=== PATIENT | female | born 1995 | race American Indian/Alaskan Native ===

== ENCOUNTER 2016-12-21 20:01 | Emergency (ER) | payer OTHER ==
--- NOTE | 2016-12-21 22:09 | Cat Scan Report ---
FINAL REPORT EXAM: CT HEAD/BRAIN WO CON HISTORY: HEAD INJURY / HEADACHE TECHNIQUE: Noncontrast serial axial images from skull base to vertex PRIORS: None. FINDINGS: There is no mass effect or midline shift. There are no abnormal intra or extra-axial fluid collections. Cortical sulci and lateral ventricles are within normal limits for size and configuration. Basilar cisterns are patent. No acute intracranial hemorrhage is identified. Visualized paranasal sinuses and mastoid air cells are well aerated. No acute osseous abnormality is identified. IMPRESSION: 1. No acute intracranial hemorrhage is identified.
[2016-12-21 22:50] VITALS: BP 107/78
[2016-12-21] MEDS ORDERED: TORADOL IM ONE (23:00)
--- NOTE | 2016-12-21 23:06 | Emergency Department Report ---
ED Head Trauma HPI - General Chief complaint: Head Injury Stated complaint: HEAD INJURY Time Seen by Provider: 12/21/16 22:44 Source: patient Mode of arrival: Ambulatory Limitations: No Limitations - History of Present Illness Initial comments: This is a 21-year-old female nontoxic, well nourished in appearance, no acute signs of distress the present the ED complaining of intermittent headaches 4 days. Patient stated 4 days ago she hit her head against a metal pipe and developed headache with dizziness. Patient denies loss of consciousness, stated she had one episode of emesis with full content. They stated headache has been relieved with ibuprofen [id number] but today she presents with headache concerned because the headache is intermittently coming and going for 4 days. Patient denies any stiff neck, nausea, vomiting, chest pain, shortness of breath, fever, chills, blurry vision, or visual changes. Patient denies thunderclap headache. Stated headache is a gradual onset that is intermittent. Patient describes headache as aching diffusely with level of 9 out of 10. Patient denies any allergies or past medical history. MD Complaint: head injury -: Gradual, days(s) (4) Mechanism of Injury: machine or tool related Location: frontal Loss of Consciousness: no Previous Trauma to this Area: No Place: home Radiation: none Severity: moderate Severity scale (0 -10): 9 Quality: aching Consistency: intermittent Provoking factors: none known Other Injuries: none Associated Symptoms: denies other symptoms. denies: confusion, amnesia, repetitive questioning, vision changes, nausea, vomiting, vertigo, syncope, numbness, weakness, tingling, neck pain - Related Data Home Medications Medication Instructions Recorded Confirmed Last Taken Cetirizine HCl [ZyrTEC] 10 mg PO DAILY 12/21/16 12/21/16 12/20/16 Ibuprofen [Motrin] 200 mg PO Q6H PRN 12/21/16 12/21/16 12/21/16 Montelukast [Singulair] 10 mg PO QPM 12/21/16 12/21/16 12/20/16 Previous Rx's Medication Instructions Recorded Last Taken Type Ibuprofen [Motrin 600 MG tab] 600 mg PO Q8H PRN #30 tablet 12/21/16 Unknown Rx Allergies/Adverse reactions: Allergies Allergy/AdvReac Type Severity Reaction Status Date / Time Fish Containing Products Allergy Itching Verified 12/21/16 22:48 peanut Allergy Itching Verified 12/21/16 22:48 shellfish derived Allergy Unknown Verified 12/21/16 22:48 ED Review of Systems ROS: Stated complaint: HEAD INJURY Other details as noted in HPI Constitutional: denies: chills, fever Eyes: denies: eye pain, eye discharge, vision change ENT: denies: ear pain, throat pain Respiratory: denies: cough, shortness of breath, wheezing Cardiovascular: denies: chest pain, palpitations Endocrine: no symptoms reported Gastrointestinal: denies: abdominal pain, nausea, diarrhea Genitourinary: denies: urgency, dysuria, discharge Musculoskeletal: denies: back pain, joint swelling, arthralgia Skin: denies: rash, lesions Neurological: denies: headache, weakness, paresthesias Psychiatric: denies: anxiety, depression Hematological/Lymphatic: denies: easy bleeding, easy bruising ED Past Medical Hx - Past Medical History Previous Medical History?: No - Surgical History Past Surgical History?: No - Social History Smoking Status: Never Smoker Substance Use Type: None - Medications Home Medications: Home Medications Medication Instructions Recorded Confirmed Last Taken Type Cetirizine HCl [ZyrTEC] 10 mg PO DAILY 12/21/16 12/21/16 12/20/16 History Ibuprofen [Motrin 600 MG tab] 600 mg PO Q8H PRN #30 tablet 12/21/16 Unknown Rx Ibuprofen [Motrin] 200 mg PO Q6H PRN 12/21/16 12/21/16 12/21/16 History Montelukast [Singulair] 10 mg PO QPM 12/21/16 12/21/16 12/20/16 History ED Physical Exam - General Limitations: No Limitations General appearance: alert, in no apparent distress - Head Head exam: Present: atraumatic, normocephalic, normal inspection - Eye Eye exam: Present: normal appearance, PERRL, EOMI. Absent: scleral icterus, conjunctival injection, nystagmus, periorbital swelling, periorbital tenderness Pupils: Present: normal accommodation - ENT ENT exam: Present: normal exam, normal orophraynx, mucous membranes moist, TM's normal bilaterally, normal external ear exam - Neck Neck exam: Present: normal inspection, full ROM. Absent: tenderness, meningismus, lymphadenopathy, thyromegaly - Respiratory Respiratory exam: Present: normal lung sounds bilaterally. Absent: respiratory distress, wheezes, rales, rhonchi, stridor, chest wall tenderness, accessory muscle use, decreased breath sounds, prolonged expiratory - Cardiovascular Cardiovascular Exam: Present: regular rate, normal rhythm, normal heart sounds. Absent: bradycardia, tachycardia, irregular rhythm, systolic murmur, diastolic murmur, rubs, gallop - GI/Abdominal GI/Abdominal exam: Present: soft, normal bowel sounds. Absent: distended, tenderness, guarding, rebound, rigid, diminished bowel sounds - Rectal Rectal exam: Present: deferred - Extremities Exam Extremities exam: Present: normal inspection, full ROM, normal capillary refill. Absent: tenderness, pedal edema, joint swelling, calf tenderness - Back Exam Back exam: Present: normal inspection, full ROM. Absent: tenderness, CVA tenderness (R), CVA tenderness (L), muscle spasm, paraspinal tenderness, vertebral tenderness, rash noted - Neurological Exam Neurological exam: Present: alert, oriented X3, CN II-XII intact, normal gait, reflexes normal - Expanded Neurological Exam Expanded Patient oriented to: Present: person, place, time Speech: Present: fluid speech Cranial nerves: EOM's Intact: Normal, Gag Reflex: Normal, Tongue Deviation: Normal, Nystagmus: Normal, Facial Sensation: Normal, Facial Palsy with Forehead Movement: Normal, Facial Palsy without Forehead Movement: Normal Cerebellar function: Finger to Nose: Normal, Heel to Mcdermott: Normal, Romberg: Normal Upper motor neuron: Zoran Neglect: Normal, Pronator Drift: Normal, Babinski Sign : Normal, Sensory Extinction: Normal Sensory exam: Upper Extremity Light Touch: Normal, Upper Extremity Pin Prick: Normal, Upper Extremity Temperature: Normal, UE 2 Point Discrimination: Normal, Lower Extremity Light Touch: Normal, Lower Extremity Pin Prick: Normal, Lower Extremity Temperature: Normal, LE 2 Point Discrimination: Normal Motor strength exam: RUE: 5, LUE: 5, RLE: 5, LLE: 5 DTR: bicep (R): 2+, bicep (L): 2+, tricep (R): 2+, tricep (L): 2+, knee (R): 2+ , knee (L): 2+, ankle (R): 2+, ankle (L): 2+ Best Eye Response ([place]): (4) open spontaneously Best Motor Response ([place]): (6) obeys commands Best Verbal Response ([place]): (5) oriented Maty Total: 15 - Psychiatric Psychiatric exam: Present: normal affect, normal mood - Skin Skin exam: Present: warm, dry, intact, normal color. Absent: rash ED Course Vital Signs 12/21/16 12/21/16 21:00 22:48 Temperature 98.5 F Pulse Rate 77 70 Respiratory 20 20 Rate Blood Pressure 111/80 Blood Pressure 107/78 [Left] O2 Sat by Pulse 99 99 Oximetry - Reevaluation(s) Reevaluation #1: 12/21/16 23:05 Patient is speaking full sentences with no signs of distress. - Lab Data Lab Results 12/21/16 Range/Units 21:07 HCG, Qual Negative (Negative) - Medical Decision Making ED course; this is a 21-year-old female that presented with contusion and headache Patient was examined myself. Patient is stable. The CT scan of head/brain without contrast has been obtained with normal findings and no signs of any intracranial hemorrhages. Patient was notified of CT findings with no further questions noted by the patient. Patient received Toradol 60 mg IM the ED for headache. Patient stated headache has subsided after medical treatment in the ED. Patient was instructed to follow up with a primary care doctor/neurologist in 3-5 days or if symptoms such as chest pain, shortness of breath, worsening headache, stiff neck, fever, chills, or worsening symptoms return to emergency room as soon as possible. Patient received ibuprofen 600 mg by mouth at the time of discharge. At time time of discharge, the patient does not seem toxic or ill in appearance. No acute signs of distress noted. Patient agrees to discharge treatment plan of care. No further questions noted by the patient. - NEXUS Criteria Focal neurological deficit present: No Midline spinal tenderness present: No Altered level of consciousness: No Intoxication present: No Distracting injury present: No NEXUS results: C-Spine can be cleared clinically by these results. Imaging is not required. Critical care attestation.: If time is entered above; I have spent that time in minutes in the direct care of this critically ill patient, excluding procedure time. ED Disposition Clinical Impression: Headache Qualifiers: Headache type: unspecified Headache chronicity pattern: acute headache Intractability: not intractable Qualified Code(s): R51 - Headache Contusion Qualifiers: Encounter type: initial encounter Contusion area: head Contusion of head detail : scalp Qualified Code(s): S00.03XA - Contusion of scalp, initial encounter Disposition: TO HOME OR SELFCARE Is pt being admited?: No Does the pt Need Aspirin: No Condition: Stable Instructions: Contusion in Adults (ED), Scalp Contusion in Adults (ED), Ibuprofen (By mouth), Acute Headache (ED) Additional Instructions: follow up with a primary care doctor/neurologist in 3-5 days or if symptoms such as chest pain, shortness of breath, worsening headache, stiff neck, fever, chills, or worsening symptoms return to emergency room as soon as possible. Take ibuprofen as prescribed for headache as prescribed as needed Prescriptions: Ibuprofen [Motrin 600 MG tab] 600 mg PO Q8H PRN #30 tablet PRN Reason: Pain Referrals: PRIMARY CAREMD [Primary Care Provider] - 3-5 Days TRACE GONZALEZ MD [Staff Physician] - 3-5 Days JANAE ELDRIDGE JR, MD [Referring] - 3-5 Days [facility] [Outside] - 3-5 Days [facility] [Outside] - 3-5 Days Forms: Work/School Release Form(ED)
== END 2016-12-21 23:35 | disposition home or self-care (01) ==
LOC: ED 20:01
DX: S00.93XA Contusion of unspecified part of head, initial encounter (principal); Z91.010 Allergy to peanuts; Z91.013 Allergy to seafood; W22.8XXA Striking against or struck by other objects, initial encounter; Y93.89 Activity, other specified; Y92.89 Other specified places as the place of occurrence of the external cause; Y99.8 Other external cause status
CPT/HCPCS: 36415; 70450; 84703; 96372; 99284; J1885